=== PATIENT | female | born 1990 | race Caucasian/White ===

== ENCOUNTER 2016-10-15 08:39 | Emergency (ER) | payer OTHER ==
[2016-10-15 08:49] VITALS: BMI 24.3
[2016-10-15] MEDS ORDERED: Sodium Chloride 0.9% 1,000 ML IV ONE (09:37)
--- NOTE | 2016-10-15 10:11 | C.PDOC ---
History Of Present Illness 26-year-old female, (, 10-weeks), PMHx includes Hypertension, presents to the emergency department with complaints of intermittent vaginal bleeding and pelvic cramping x 1 week. Patient states she was sent to ED by her PMD, and is requesting termination of . Patient denies nausea/ vomiting/diarrhea, fever/chills, chest pain, shortness of breath, dysuria/ hematuria. PMD Dr Lissa Navarro. Time Seen by Provider: 10/15/16 08:52 Chief Complaint (Nursing): Female Genitourinary History Per: Patient History/Exam Limitations: no limitations Onset/Duration Of Symptoms: Intermittent Episodes Severity: Mild Past Medical History Reviewed: Historical Data, Nursing Documentation, Vital Signs Vital Signs: Last Vital Signs Temp 98.6 F 10/15/16 12:46 Pulse 72 10/15/16 12:46 Resp 18 10/15/16 12:46 BP 144/92 H 10/15/16 12:46 Pulse Ox 144 H 10/15/16 12:46 - Medical History PMH: HTN - [facility] Procedures DELIVERY OF PRODUCTS OF CONCEPTION, EXTERNAL APPROACH (09/11/15) INTRODUCE OF OTH THERAP SUBST INTO FEM REPROD, VIA OPENING (09/11/15) REPAIR PERINEUM MUSCLE, OPEN APPROACH (09/11/15) Family History: States: No Known Family Hx - Social History Hx Tobacco Use: No Hx Alcohol Use: No Hx Substance Use: No - Immunization History Hx Tetanus Toxoid Vaccination: No Hx Influenza Vaccination: No Hx Pneumococcal Vaccination: No Review Of Systems Except As Marked, All Systems Reviewed And Found Negative. Constitutional: Negative for: Fever, Chills Cardiovascular: Negative for: Chest Pain Respiratory: Negative for: Shortness of Breath Gastrointestinal: Negative for: Nausea, Vomiting Genitourinary: Positive for: Vaginal Bleeding, Pelvic Pain. Negative for: Dysuria, Hematuria, Vaginal Discharge Musculoskeletal: Negative for: Back Pain Neurological: Negative for: Dizziness Physical Exam - Physical Exam Appears: Well, Non-toxic, No Acute Distress Skin: Warm, Dry, No Rash Head: Normacephalic Eye(s): bilateral: Normal Inspection Oral Mucosa: Moist Cardiovascular: Rhythm Regular Respiratory: Normal Breath Sounds, No Rales, No Rhonchi, No Wheezing Gastrointestinal/Abdominal: Normal Exam, Bowel Sounds, Soft, No Tenderness Extremity: Normal ROM Neurological/Psych: Oriented x3 ED Course And Treatment - Laboratory Results Result Diagrams: 10/15/16 10:24 10/15/16 10:24 O2 Sat by Pulse Oximetry: 100 (RA) Pulse Ox Interpretation: Normal - CT Scan/US ob US Other Rad Studies (CT/US): Read By Radiologist, Radiology Report Reviewed CT/US Interpretation: Accession No. : [id number]. Patient Name / ID : BROCK GILLESPIE / [id number]. Exam Date : 10/15/2016 11:24:02 ( Approved ). Study Comment : Sex / Age : F / 26Y. Creator : Maru Faustin. Dictator : Maru Faustin. Civilian Technician : Coffee Grower : Maru Faustin. Approver2 : Report Date : 10/15/2016 12:20:30. My Comment : . PROCEDURE: OB Pelvic Ultrasound. HISTORY: PELVIC PAIN, , BLEEDING. COMPARISON: No related prior study available for comparison. FINDINGS: UTERUS: Gestational sac: There are 2 gestational sac contains twin . Heart rate: for twin A 152 and for twin B 161 bpm. age (Ultrasound estimated): Approximately 8 weeks 1 day +/- 0 weeks 4 days. Wendy-gestational hemorrhage: None. Date of delivery (Ultrasound estimated) : 05/26/2017. Uterus measures 14 x 6 x 9.4 cm. Normal in size and appearance. CERVIX: Long and closed. No cervical abnormality seen. RIGHT OVARY: Measures 4.2 x 2.3 x 3.5 cm. No mass lesion. Normal flow. LEFT OVARY: Measures 3.5 x 1.8 x 3.4 cm. No solid mass. Normal flow. FREE FLUID: None. OTHER FINDINGS: None. IMPRESSION: Twin live intrauterine with ultrasound estimated gestational age of 8 weeks 1 day +/-0 weeks 4 days. Estimated date of delivery by ultrasound is 05/26. Progress Note: Blood work, UA and OB US ordered and reviewed. Patient given IV NS bolus. Reevaluation Time: 12:45 Reassessment Condition: Improved (On reassessment, patient is resting comfortably and states she feels well, has no pain. Blood work WNL, blood type B+. US shows twin gestation, 8 weeks. Patient instructed to follow up with ob/ product inspection coordinator within 1 week, and [facility]. She understands she should return to ED if symptoms worsen.) Disposition Counseled Patient/Family Regarding: Diagnosis, Need For Followup - Disposition Referrals: [place] [facility] [Outside] [facility] [Outside] Lissa Navarro [Staff Provider] - Disposition: HOME/ ROUTINE Disposition Time: 12:40 Condition: STABLE Additional Instructions: FOLLOW UP WITH [facility] WITHIN 1 WEEK FOR FURTHER EVALUATION RETURN TO ER IF SYMPTOMS WORSEN Prescriptions: Acetaminophen [Tylenol 325mg tab] 650 mg PO Q6 PRN #30 tab PRN Reason: pain/fever Instructions: (ED) Print Language: HEBREW - POA Present On Arrival: None - Clinical Impression Clinical Impression: Twin gestation in first trimester, , Vaginal bleeding - Scribe Statement The provider has reviewed the documentation as recorded by the Cindiibameena Kurtz All medical record entries made by the Scribe were at my direction and personally dictated by me. I have reviewed the chart and agree that the record accurately reflects my personal performance of the history, physical exam, medical decision making, and the department course for this patient. I have also personally directed, reviewed, and agree with the discharge instructions and disposition.
[2016-10-15 10:28] LABS: BASO % 0.3 % (0.0-2.0); EOS # 0.2 K/uL (0.0-0.7); EOS % 2.9 % (0.0-4.0); HEMATOCRIT 35.4 % (34.0-47.0); LYMPH # 1.3 K/uL (1.0-4.3); LYMPH % 19.8 % (20.0-40.0); MEAN CELL VOLUME 90.5 fL (81.0-99.0); MEAN CORPUSCULAR HEMOGLOBIN 30.7 pg (27.0-31.0); MEAN CORPUSCULAR HGB CONC 33.9 g/dL (33.0-37.0); MEAN PLATELET VOLUME 8.5 fL (7.2-11.7); MONO # 0.5 K/uL (0.0-0.8); MONO % 8.3 % (0.0-10.0); NRBC % 0.1 % (0.0-2.0); RED CELL DISTRIBUTION WIDTH 13.2 % (11.5-14.5); WHITE BLOOD COUNT 6.6 K/uL (4.8-10.8)
[2016-10-15 10:44] LABS: CHLORIDE 98 mmol/L (98-107); POTASSIUM 4.1 mmol/L (3.6-5.2); SODIUM 132 mmol/L (132-148)
[2016-10-15 10:45] LABS: RBC URINE 3 /hpf (0-3); URINE BILIRUBIN NEGATIVE (NEGATIVE); URINE BLOOD NEGATIVE (NEGATIVE); URINE COLOR Yellow (YELLOW); URINE GLUCOSE (UA) NORMAL (Normal); URINE KETONE NEGATIVE (NEGATIVE); URINE LEUKOCYTE ESTERASE NEG Leu/uL (Negative); URINE PROTEIN 2+ mg/dL (NEGATIVE); URINE UROBILINOGEN NORMAL mg/dL (0.2-1.0); WBC URINE 2 /hpf (0-5)
[2016-10-15 10:47] LABS: BLOOD UREA NITROGEN 6 mg/dL (7-17); CARBON DIOXIDE 27 mmol/L (22-30); GFR AFRICAN-AMERICAN > 60; GLUCOSE,RANDOM 80 mg/dL (65-105)
--- NOTE | 2016-10-15 12:22 | US ---
PROCEDURE: OB Pelvic Ultrasound HISTORY: PELVIC PAIN, , BLEEDING COMPARISON: No related prior study available for comparison. FINDINGS: UTERUS: Gestational sac: There are 2 gestational sac contains twin Heart rate: for twin A 152 and for twin B 161 bpm. age (Ultrasound estimated): Approximately 8 weeks 1 day +/- 0 weeks 4 days Wendy-gestational hemorrhage: None. Date of delivery (Ultrasound estimated) : 05/26/2017 Uterus measures 14 x 6 x 9.4 cm. Normal in size and appearance. CERVIX: Long and closed. No cervical abnormality seen. RIGHT OVARY: Measures 4.2 x 2.3 x 3.5 cm. No mass lesion. Normal flow. LEFT OVARY: Measures 3.5 x 1.8 x 3.4 cm. No solid mass. Normal flow. FREE FLUID: None. OTHER FINDINGS: None. IMPRESSION: Twin live intrauterine with ultrasound estimated gestational age of 8 weeks 1 day +/-0 weeks 4 days. Estimated date of delivery by ultrasound is 05/26/2017.
[2016-10-15 12:47] VITALS: BP 144/92; PULSE 72; RESP 18; TEMP 98.6
[2016-10-19 18:23] VITALS: O2SAT 100
== END 2016-10-15 12:45 | disposition home or self-care (01) ==
LOC: C.ER 08:39
DX: O20.9 Hemorrhage in early pregnancy, unspecified (principal); O30.001 Twin pregnancy, unspecified number of placenta and unspecified number of amniotic sacs, first trimester; Z3A.10 10 weeks gestation of pregnancy
CPT/HCPCS: 76801; 80048; 81001; 84702; 85025; 86850; 86900; 96360; 99284; J7040